=== PATIENT | male | born 1995 | race Caucasian/White ===

== ENCOUNTER 2016-09-25 09:35 | Emergency (ER) | payer OTHER ==
[~2016-09-25] VITALS: Ht 180.3 cm; Wt 68.3 kg
[2016-09-25 10:48] VITALS: BP 118/72
== END 2016-09-25 10:49 | disposition home or self-care (01) ==
LOC: EME 09:35
PROC: 0HQHXZZ Repair Right Upper Leg Skin, External Approach (ICD-10-PCS; principal; 2016-09-25)
DX: S71.111A Laceration without foreign body, right thigh, initial encounter (principal); W31.2XXA Contact with powered woodworking and forming machines, initial encounter; Z88.1 Allergy status to other antibiotic agents; Z88.2 Allergy status to sulfonamides; Z88.0 Allergy status to penicillin
CPT/HCPCS: 99281; 99284

== ENCOUNTER 2016-12-20 11:43 | Emergency (ER) | payer SELFPAY ==
[~2016-12-20] VITALS: Ht 182.9 cm; Wt 70.1 kg
[2016-12-20 11:59] VITALS: BP 109/70
== END 2016-12-20 15:12 | disposition left against medical advice (07) ==
LOC: EME 11:43
DX: M54.9 Dorsalgia, unspecified (principal); Z53.21 Procedure and treatment not carried out due to patient leaving prior to being seen by health care provider
CPT/HCPCS: 72100